=== PATIENT | female | born 2005 | race Caucasian/White ===

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

== ENCOUNTER 2023-02-19 09:53 | Emergency (ER) | payer BC, SELFPAY ==
--- NOTE | ~2023-02-19 | XR_ITS ---
XR knee RT 3V DATE: 02/19/2023 11:35 INDICATION: Right knee pain TECHNIQUE: AP, lateral, sunrise views COMPARISON: None FINDINGS: No fracture or dislocation or joint effusion, periosteal reaction or bone destruction, radi opaque intra-articular loose body or chondrocalcinosis. Joint spaces are relatively preserved. IMPRESSION: No significant abnormality Reviewed, dictated and finalized at location L. R [employer] IMPRESSION: No significant abnormality
[2023-02-19 10:14] VITALS: BP 119/64; PULSE 111; RESP 16; TEMP 36.6; O2SAT 100
--- NOTE | 2023-02-19 11:26 | ED.EXTPRO ---
HPI - Extremity Problem General Chief complaint: Extremity Problem,Nontraumatic Stated complaint: Knee pain Time Seen by Provider: 02/19/23 11:20 Source: patient Mode of arrival: ambulatory Limitations: no limitations History of Present Illness HPI Narrative: 17-year-old female presented for complaint of right knee pain for 2 months. She states she tripped and fell last night and landed on the right knee, and has had increased pain since then. Reports pain with light palpation. Has taken occasional ibuprofen. Denies swelling, bruising, numbness, tingling or weakness. Denies original injury. Related Data Allergies Allergy/AdvReac Type Severity Reaction Status Date / Time cephalexin [From Keflex] Allergy Rash Verified 02/19/23 10:22 Review of Systems Review of Systems: CONSTITUTIONAL: Denies body aches, fever, chills EYES: Denies visual changes ENT: Denies rhinorrhea, congestion CARDIOVASCULAR: Denies chest pain, palpitations, or edema. RESPIRATORY: Denies cough or dyspnea. GASTROINTESTINAL: Denies abdominal pain, nausea, vomiting, or diarrhea. SKIN: Denies rash, itching, or wounds. MUSCULOSKELETAL: Reports knee pain Denies back pain, or myalgia. NEUROLOGIC: Denies headache, numbness, tingling, or weakness. All systems reviewed & are unremarkable except as noted in HPI and below PMFSH Past Medical History Medical History Anxiety Bipolar disorder Borderline personality disorder Depression Eating disorder History of suicide attempt Posttraumatic stress disorder Surgical History Surgical History No history of previous surgery Family History Family History Other Adopted Social History Social History Social History: Surrogate medical decision maker: Jude Ying, spouse. Code status: Full code. Smoking status: Never smoker Alcohol intake: never Substance use: never Substance use type: does not use Lack of Transportation: No Lack of Food: Never True Current Housing: Decline to Answer Concerned About Future Housing: Decline to Answer Difficulty Paying Gas/Electric Bills: Decline to Answer Difficulty Paying for Meds: Decline to Answer Currently Unemployed: Decline to Answer Education: Don't Know Difficulty w/ Childcare or Family Care: Decline to Answer Additional occupation/education comments: Lives in [place] with spouse. Additional gender identity comments: Unemployed. Spiritual care concerns: No Comments At time of signature, I have reviewed and agree with nursing past medical, surgical, social and family history unless otherwise noted. Please see nursing chart for further information. There is no relevant family history pertinent to the presenting complaint Exam Narrative: GENERAL: Well-appearing, and in no acute distress. CHEST: Speaks in full sentences. No respiratory distress. HEART: Regular rate and rhythm. Normal and equal peripheral pulses. EXTREMITIES: Right knee generalized tenderness with light palpation. Patient is able to bear weight and ambulate with pain to the right knee. No bruising, erythema, swelling, or warmth. The right knee is without obvious asymmetry or deformity when compared to the other knee. RLE has normal strength and sensation, normal range of motion but endorses pain with any movement. No effusion or ballottement. No tenderness over the infrapatellar tendon. No tenderness over the proximal fibular head. No quadriceps tenderness. Distal motor and neurovascular status intact. No open wounds or obvious deformity; alignment normal, pulse palpable and equal bilaterally, skin warm, dry, pink. Steady gait. Capillary refill less than 3 seconds. SKIN: Warm, dry, no rash. NEURO: Alert and oriented x3. PSYCH: flat affect
== END 2023-02-19 11:55 | disposition home or self-care (01) ==
PROVIDERS: Emergency Provider Nurse Practitioner Family
DX: M25.561 Pain in right knee (principal)
CPT/HCPCS: 73562; 99213; G0463

== ENCOUNTER 2023-12-10 13:48 | Emergency (ER) | payer BC, SELFPAY ==
--- NOTE | 2023-12-10 13:56 | ED.SOB ---
HPI - SOB/Dyspnea General Chief Complaint: Shortness of Breath/Dyspnea Stated Complaint: Chest Pain/Shortness of Breath/High Blood Pressure Time Seen by Provider: 12/10/23 13:56 Source: patient, RN notes reviewed and old records reviewed Mode of arrival: ambulatory Limitations: no limitations History of Present Illness HPI Narrative: Patient on phentermine presents with complaints of rapid heart rate, chest pain, shortness of breath. She reports that all symptoms have been present since 5:00 a.m.. She reports that her doctor told her that this could be a side effect of her medication, and that she should get checked out if she ever experienced these sensations. She is not in any distress at this time. She is relaxing on the stretcher, speaking in complete sentences. Her significant other is speaking for her quite a bit, she consents to this Related Data Allergies Allergy/AdvReac Type Severity Reaction Status Date / Time cephalexin [From Keflex] Allergy Rash Verified 12/10/23 14:01 Review of Systems Review of Systems: All systems reviewed & are unremarkable except as noted in HPI and below Constitutional: Constitutional: Reports no additional constitutional complaints ENT: Reports system reviewed and no additional complaints, except as documented Cardiovascular: Cardiovascular: Reports as per HPI and Reports no additional cardiovascular complaints Respiratory: Respiratory: Reports as per HPI and Reports no additional respiratory complaints Gastrointestinal: Gastrointestinal: Reports no additional gastrointestinal complaints [facility] Past Medical History Medical History Anxiety Bipolar disorder Borderline personality disorder Depression Eating disorder History of suicide attempt Posttraumatic stress disorder Surgical History Surgical History No history of previous surgery Family History Family History Other Adopted Social History Social History Social History: Surrogate medical decision maker: Jude He, spouse. Code status: Full code. Smoking status: Never smoker Alcohol intake: never Substance use: never Substance use type: does not use Lack of Transportation: No Lack of Food: Never True Current Housing: Decline to Answer Concerned About Future Housing: Decline to Answer Difficulty Paying Gas/Electric Bills: Decline to Answer Difficulty Paying for Meds: Decline to Answer Currently Unemployed: Decline to Answer Education: Don't Know Difficulty w/ Childcare or Family Care: Decline to Answer Additional occupation/education comments: Lives in [place] with spouse. Additional gender identity comments: Unemployed. Spiritual care concerns: No Comments At the time of my signature, I reviewed and agree with the nursing past medical, surgical, social, and family history. There is no relevant family history pertinent to the patient complaint. Exam Const: General: cooperative, no acute distress, alert and awake Orientation/consciousness: oriented to person, oriented to place and oriented to time HENMT: Head: normal to inspection Resp: Effort & Inspection: normal respiratory effort and able to speak in complete sentences Auscultation: clear to auscultation bilaterally, no crackles, no rales, no rhonchi and no wheezes Cardio: Palpation: normal PMI Rate: regular rate and tachycardic Rhythm: regular rhythm Heart sounds: S1 normal heart sound present and S2 normal heart sound present Neuro: General: oriented to person, oriented to place and oriented to time Cranial nerves: Yes CN's II-XII intact bilaterally Psych: Appearance: grossly normal Thought process: Normal thought process present Insight: Good insight present (Psych) Judgement: Owen
[2023-12-10 14:02] VITALS: BP 126/78; PULSE 124; RESP 20; TEMP 36.2; O2SAT 99
--- NOTE | 2023-12-10 14:05 | ECG_ITS ---
Test Date: 2023-12-10 14:12:57 Measurements Intervals [place] Rate: 102 P: 41 [place]: 132 QRS: 38 QRSD: 84 T: 12 QT: 314 QTc: 410 Interpretive Statements SINUS TACHYCARDIA POSSIBLE LEFT ATRIAL ENLARGEMENT BASELINE ARTIFACT- I, II, AVR BORDERLINE ECG No previous ECG available for comparison Electronically Signed On 12-10-2023 14:48:26 CDT by Uli Felix D.O.
== END 2023-12-10 14:31 | disposition short-term general hospital (02) ==
PROVIDERS: Emergency Provider Nurse Practitioner Family; PCP Nurse Practitioner Family
DX: R00.0 Tachycardia, unspecified (principal)
CPT/HCPCS: 93005; 99213; G0463

== ENCOUNTER 2023-12-10 14:55 | Emergency (ER) | payer BC, SELFPAY ==
--- NOTE | ~2023-12-10 | XR_ITS ---
EXAMINATION: XR chest 2V DATE: 12/10/2023 17:02 INDICATION: Chest pain. TECHNIQUE: Frontal and lateral views of the chest were obtained. COMPARISON: Chest CT 07/28/2022 FINDINGS: There is no pneumonia, pleural effusion, or pneumothorax. The heart size is normal. IMPRESSION: 1. No acute cardiopulmonary disease. Reviewed, dictated and finalized at location A.
--- NOTE | 2023-12-10 14:56 | ECG_ITS ---
Test Date: 2023-12-10 15:04:03 Measurements Intervals [place] Rate: 110 P: 48 [place]: 145 QRS: 32 QRSD: 81 T: 10 QT: 294 QTc: 398 Interpretive Statements SINUS TACHYCARDIA POSSIBLE LEFT ATRIAL ENLARGEMENT NONSPECIFIC T-WAVE ABNORMALITY- INFERIOR LEADS BASELINE ARTIFACT- I, II, III, AVR, AVL, AVF, V1 ABNORMAL ECG Compared to ECG 12/10/2023 14:12:57 NO SIGNIFICANT CHANGE Electronically Signed On 12-10-2023 15:07:38 CDT by Uli Felix D.O.
--- NOTE | 2023-12-10 14:58 | ED.CHESTPAIN ---
HPI - Chest Pain General Chief Complaint: Chest Pain <Derrell Bass PA-C - Last Filed: 12/10/23 15:02> Stated Complaint: chest pain <Derrell Bass PA-C - Last Filed: 12/10/23 15:02> Time Seen by Provider: 12/10/23 14:58 <Derrell Bass PA-C - Last Filed: 12/10/23 15:02> Focused HPI: This is a 18-year-old female who presents to the ED for chief complaint of left central chest pain beginning around 0 500 this morning. Reports it is in the center left chest does not radiate. Reports somewhat worse with breathing and at times. Described as a pressure. Was on control 1 year ago. Currently only taking phentermine. Denies recent injury, recent illness, fevers, chills, cough, sore throat, dyspnea, leg swelling, or history of blood clot. GENERAL: Well-appearing, well-nourished, and in no acute distress. HEAD: Normocephalic, atraumatic. CHEST: Clear to auscultation. No respiratory distress. HEART: Regular rate and rhythm. NEURO: Alert and oriented x3. Patient screened in triage and initial orders placed. Additional care and disposition to be based upon diagnostic testing and treatment. <Derrell Bass PA-C - Last Filed: 12/10/23 15:02> Source: patient <Derrell Bass PA-C - Last Filed: 12/10/23 15:02> Mode of arrival: ambulatory <Derrell Bass PA-C - Last Filed: 12/10/23 15:02> Limitations: no limitations <Derrell Bass PA-C - Last Filed: 12/10/23 15:02> History of Present Illness HPI narrative: I agree with the note/assessment done by Derrell Melton PA-C. Pt has a history of anxiety, asthma, bipolar disorder, and suicide attempts. She declines possibility of . <Rosi Adams APRN - Last Filed: 12/10/23 22:37> Related Data Home Medications: Home Medications Medication Instructions Recorded Confirmed phentermine 37.5 mg capsule 37.5 mg PO DAILY 12/10/23 12/10/23 <Derrell Bass PA-C - Last Filed: 12/10/23 15:02> Allergies/Adverse Reactions: Allergies Allergy/AdvReac Type Severity Reaction Status Date / Time cephalexin [From Keflex] Allergy Rash Verified 12/10/23 14:01 <Derrell Bass PA-C - Last Filed: 12/10/23 15:02> Review of Systems Review of Systems: All systems reviewed & are unremarkable except as noted in HPI and below <Rosi Adams APRN - Last Filed: 12/10/23 22:37> [facility] Past Medical History Medical History: Medical History Anxiety Bipolar disorder Borderline personality disorder Depression Eating disorder History of suicide attempt Posttraumatic stress disorder <Derrell Bass PA-C - Last Filed: 12/10/23 15:02> Surgical History Surgical History: Surgical History No history of previous surgery <Derrell Bass PA-C - Last Filed: 12/10/23 15:02> Family History Family History: Family History Other Adopted <Derrell Bass PA-C - Last Filed: 12/10/23 15:02> Social History Social History: Social History Social History: Surrogate medical decision maker: Jude He, spouse. Code status: Full code. Smoking status: Never smoker Alcohol intake: never Substance use: never Substance use type: does not use Lack of Transportation: No Lack of Food: Never True Current Housing: Decline to Answer Concerned About Future Housing: Decline to Answer Difficulty Paying Gas/Electric Bills: Decline to Answer Difficulty Paying for Meds: Decline to Answer Currently Unemployed: Decline to Answer Education: Don't Know Difficulty w/ Childcare or Family Care: Decline to Answer Additional occupation/education comments: Lives in [place] with spouse. Additional gender identity comments: Unemployed. Spiritual care concerns: No <Derrell
[2023-12-10 15:11] LABS: Basophils Absolute Auto 0.1 K/mm3 (0.0-0.1); Basophils Percent Auto 0.7 % (0.2-1.2); Eosinophils Absolute Auto 0.1 K/mm3 (0-0.3); Eosinophils Percent Auto 1.1 % (0-4.4); Hematocrit 42.6 % (37.0-47.0); Hemoglobin 13.7 g/dL (12.0-15.0); Immature Granulocyte Absolute 0.04 K/mm3 (0.00-0.031); Immature Granulocyte Percent A 0.4 % (0-0.5); Lymphocytes Absolute Auto 1.78 K/mm3 (0.9-3.2); Lymphocytes Percent Auto 16.3 % (18.3-44.2); Mean Corpuscular HGB Conc 32.2 g/dl (32-36); Mean Corpuscular Hemoglobin 26.8 pg (26-34); Mean Corpuscular Volume 83.4 fl (80-100); Mean Platelet Volume 9.8 fl (7.4-10.4); Monocytes Absolute Auto 0.6 K/mm3 (0.1-0.6); Monocytes Percent Auto 5.1 % (2.6-8.5); Neutrophils Absolute Auto 8.4 K/mm3 (1.3-6.7); Neutrophils Percent Auto 76.4 % (45.5-73.1); Platelet Count Result 373 k/mm3 (150-375); Red Blood Count 5.11 M/mm3 (4.2-5.4); Red Cell Distribution Width 14.6 % (11.5-14.5); White Blood Count 10.9 K/mm3 (4.5-10.0)
[2023-12-10 15:20] LABS: Alanine Aminotransferase 33 U/L (6-35); Albumin Level 4.6 g/dL (3.5-5.1); Alkaline Phosphatase 88 U/L (38-126); Anion Gap 13 mmol/L (4-12); Aspartate Amino Transferase 31 U/L (14-36); Bilirubin,Total 0.5 mg/dL (0.2-1.3); Blood Urea Nitrogen 13 mg/dL (7-17); Calcium 9.4 mg/dL (8.4-10.2); Carbon Dioxide 22 mmol/L (22-30); Chloride 104 mmol/L (98-107); Estimated Glomerular Filt Rate > 60; Glucose 110 mg/dL (65-110); Lipase 52 U/L (23-300); Potassium 3.8 mmol/L (3.4-5.0); Sodium 139 mmol/L (137-145)
[2023-12-10 15:21] LABS: INR 1.1; Prothrombin Time 14.5 Seconds (11.1-14.7)
[2023-12-10 15:22] VITALS: BP 146/64; PULSE 113; RESP 18; TEMP 36.6; O2SAT 99
[2023-12-10 15:22] LABS: Partial Thromboplastin Time 33.7 Seconds (22.3-36.8)
[2023-12-10 15:33] LABS: Troponin I < 0.012 ng/mL (0.000-0.034)
--- NOTE | 2023-12-10 18:20 | ECG_ITS ---
Test Date: 2023-12-10 18:26:29 Measurements Intervals [place] Rate: 112 P: 44 [place]: 144 QRS: 30 QRSD: 81 T: 10 QT: 310 QTc: 425 Interpretive Statements SINUS TACHYCARDIA POSSIBLE LEFT ATRIAL ENLARGEMENT BASELINE ARTIFACT- I, II, III, AVR, AVL, AVF, V1-V2 ABNORMAL ECG Compared to ECG 12/10/2023 15:04:03 No significant changes Electronically Signed On 12-10-2023 19:01:28 CDT by Uli Felix D.O.
[2023-12-10 18:44] VITALS: BP 142/87; PULSE 111; RESP 14; O2SAT 97
[2023-12-10 19:03] LABS: Troponin I < 0.012 ng/mL (0.000-0.034)
[2023-12-10] MEDS: SODIUM CHLORIDE 0.9% IV 1,000 ML 999 ML IV CONT (20:06)
[2023-12-10 20:34] LABS: Influenza A QL RT-PCR Negative (Negative); Influenza B QL RT-PCR Negative (Negative); RSV RNA, RT-PCR Negative (Negative); SARS-CoV-2 RNA PCR Negative (Negative)
[2023-12-10 21:30] LABS: Troponin I < 0.012 ng/mL (0.000-0.034)
[2023-12-10 22:45] VITALS: BP 118/72; PULSE 97; RESP 20; O2SAT 97
== END 2023-12-10 23:07 | disposition home or self-care (01) ==
PROVIDERS: Physician Assistant; Emergency Provider Registered Nurse; PCP Nurse Practitioner Family
DX: R07.89 Other chest pain (principal); F31.9 Bipolar disorder, unspecified; F41.8 Other specified anxiety disorders; Z20.822 Contact with and (suspected) exposure to COVID-19
CPT/HCPCS: 36415; 71046; 80053; 83690; 84484; 85025; 85610; 85730; 87637; 93005; 96360; 99284; J7030

== ENCOUNTER 2024-11-29 17:28 | Emergency (ER) | payer BC, SELFPAY ==
--- NOTE | 2024-11-29 17:30 | ED.WOUNDLAC ---
HPI - Wound/Laceration General Chief Complaint: Wound/Laceration Stated Complaint: Stitches Source: patient Mode of arrival: ambulatory Limitations: no limitations History of Present Illness HPI narrative: Rajesh is a 19 year old female patient presenting to the clinic today with complaints of a stitch falling out on her left forearm. She is here for wound check. She reports she has had the stitches in for 9 days now. States she did self harming behavior and was seen at [facility] ER and had Vicryl sutures placed 9 days ago. No other concerns at this time. Related Data Home Medications ?Medication ?Instructions ?Recorded ?Confirmed ?Last Taken ?Type phentermine 37.5 mg capsule 37.5 mg PO DAILY 12/10/23 12/10/23 Unknown History Allergies Allergy/AdvReac Type Severity Reaction Status Date / Time cephalexin (From Keflex) Allergy Rash Verified 12/10/23 14:01 Review of Systems Review of Systems: Pertinent positives per HPI. Patient denies any fever, chills, rash, headache, visual changes, dizziness, cough, runny nose, sore throat, shortness of breath, chest pain, palpitations, nausea, vomiting, diarrhea, constipation, abdominal pain, or any urinary issues. [facility] Past Medical History Medical History Bipolar disorder Borderline personality disorder Posttraumatic stress disorder Eating disorder History of suicide attempt Anxiety Depression Surgical History Surgical History No history of previous surgery Family History Family History Other Adopted Social History Social History Social History: Surrogate medical decision maker: Jude Lazojonw, spouse. Code status: Full code. Smoking status: Never smoker Alcohol intake: never Substance use: never Substance use type: does not use Lack of Transportation: No Lack of Food: Never True Current Housing: Decline to Answer Concerned About Future Housing: Decline to Answer Difficulty Paying Gas/Electric Bills: Decline to Answer Difficulty Paying for Meds: Decline to Answer Currently Unemployed: Decline to Answer Education: Don't Know Difficulty w/ Childcare or Family Care: Decline to Answer Additional occupation/education comments: Lives in [place] with spouse. Additional gender identity comments: Unemployed. Spiritual care concerns: No Comments At the time of my signature, I reviewed and agree with the nursing past medical, surgical, social, and family history. There is no relevant family history pertinent to the patient complaint. Exam Narrative: General: Well-developed, well nourished, in no apparent distress Head: Normocephalic, atraumatic. Cardio: Regular rate and rhythm, s1 and s2 normal, no murmur appreciated. Resp: Clear to auscultation bilaterally, no rhonchi, rales, wheezing or rubs. Integumentary: [place], warm, and dry, approximate 3 cm healing wound to the left forearm, no localized redness or swelling, no erythema, no purulent discharge-1 suture did break but no dehiscence noted. Course Course Emergency Course: Portions of this record may have been created with voice recognition software. Level of Care: Express Care Visit Vital Signs Vital signs: Vital Signs Temperature 36.6 C 11/29/24 17:42 Pulse Rate 93 11/29/24 17:42 Respiratory Rate 18 11/29/24 17:42 Blood Pressure 112/75 11/29/24 17:42 Pulse Oximetry 100 11/29/24 17:42 Temperature 36.6 C 11/29/24 17:42 Pulse Rate 93 11/29/24 17:42 Respiratory Rate 18 11/29/24 17:42 Blood Pressure 112/75 11/29/24 17:42 Pulse Oximetry 100 11/29/24 17:42 Vital signs reviewed MDM - Wound/Laceration MDM Narrative Medical decision making narrative: At the time of visit patient is resting comfortably on the exam table. Patient appears to be nontoxic. Complaints of a stitch falling out on her left forearm. She is here for wound check. She reports she has had the stitches in for 9 days now. States she did self harming behavior and was seen at [facility] ER and had Vicryl sutures placed 9 days ago. No other concerns at this time. Plan: Sutures appear to be Vicryl sutures on exam. Explained to the patient that these will fall out off on their own. Keep area clean and dry. Wound appears to be well healing. Follow-up with her PCP in 2-3 days for wound check Supportive measures were discussed with the patient and they voiced understanding discharge instructions and agrees to treatment plan. Return precautions reviewed Differential Diagnosis Differential diagnosis: Likely laceration, abscess, abrasion, avulsion of skin and other (Encounter for wound check, healing laceration) Discharge Plan Discharge Clinical Impression: Encounter for re-check of laceration wound Patient Disposition: Home Condition: Stable Instructions: Antibiotic Form, Care For Your Stitches (ED), Laceration (ED) Additional Instructions: Wound appears to be well healing If the facility used Vicryl sutures these will dissolve on their own Wash wound daily with soap and water and pat dry Keep covered as needed Watch for signs and symptoms of infection-fever, redness, swelling, increase in pain, purulent discharge, or streaking Follow-up with your PCP in 2- 3 days Patient Language: [place] Prescriptions: No Action phentermine 37.5 mg Capsule 37.5 mg PO DAILY Rx Instructions: must administer 30 minutes before or 1-2 hours after breakfast Follow-up/Referrals: PHYSICIAN,MEDICATION MANAGER [Primary Care Provider, Internal Medicine] Time of Disposition: 18:02 Quality NIHSS Nursing Documentation ED NIHSS nursing documentation: reviewed/agree
[2024-11-29 17:42] VITALS: BP 112/75; PULSE 93; RESP 18; TEMP 36.6; O2SAT 100
== END 2024-11-29 18:08 | disposition home or self-care (01) ==
PROVIDERS: Emergency Provider Nurse Practitioner Family
DX: Z48.02 Encounter for removal of sutures (principal)
CPT/HCPCS: 99211; G0463